=== PATIENT | female | born 1995 | race Caucasian/White ===

== ENCOUNTER 2021-08-18 04:48 | Emergency (ER) | payer OTHER, SELFPAY ==
--- NOTE | ~2021-08-18 | CT_ITS ---
EXAMINATION: CT soft tissue neck w con DATE: 08/18/2021 06:38 INDICATION: Mandibular swelling. Recent right maxillary tooth abscess. TECHNIQUE: Computed tomography (CT) of the neck was performed with 75 mL Omnipaque-350 intravenous co ntrast. Automated exposure control and iterative reconstruction technique were employed. The dose-janey gth product was 530.53 mGy-cm. COMPARISON: None FINDINGS: Multiple dental caries with periapical erosions including at the left maxillary canine, the right max illary lateral incisor and first premolar and at the left mandibular lateral incisor and right mandib ular canine. There are additional dental caries. No evident associated subperiosteal abscess. There i s an approximately 12 x 9 mm relatively lesion in the submandibular region with mild surrounding infl ammatory stranding. This lesion demonstrates greater than fluid attenuation but less than attenuation adjacent 8 mm lymph node potentially an abscess but more likely a suppurative submandibular lymph no de. There are numerous likely reactive lymph nodes along the bilateral jugular chains and posterior c ervical triangles, which remained <10 mm in maximal short axis diameter. The bilateral parotid and hernandez bmandibular glands are normal. Thyroid is normal. Cervical vasculature is unremarkable. Visualized po rtion of the brain is unremarkable. Bilateral orbits are normal. Mucous retention cyst in the right m axillary sinus. Mucosal thickening in the right sphenoid sinus. Mastoid air cells, middle ear cavitie s, visualized airway and apices of lungs are clear. Likely positional reversal of the normal cervical lordosis. Cervical spine is otherwise unremarkable. IMPRESSION: 1. Multiple dental caries, several with associated periapical erosions but no evident associated carlyn osteal abscess. 2. Likely reactive bilateral cervical lymphadenopathy with 12 x 9 mm lower attenuation left submandib ular lesion with surrounding inflammatory stranding and favor suppurative lymph node over abscess. Reviewed, dictated and finalized at location A. IMPRESSION: 1. Multiple dental caries, several with associated periapical erosions but no e vident associated periosteal abscess. 2. Likely reactive bilateral cervical lymphadenopathy with 12 x 9 mm lower atte nuation left submandibular lesion with surrounding inflammatory stranding and f avor suppurative lymph node over abscess.
[2021-08-18 04:52] VITALS: BP 113/67; PULSE 119; RESP 18; TEMP 36.8; O2SAT 100
[2021-08-18 05:31] VITALS: BP 103/77; PULSE 108; RESP 18; O2SAT 99
[2021-08-18 06:10] LABS: Basophils Percent Auto 0.3 % (0.2-1.2); Eosinophils Percent Auto 0.2 % (0-4.4); Hematocrit 34.5 % (37.0-47.0); Hemoglobin 11.3 g/dL (12.0-15.0); Immature Granulocyte Absolute 0.02 K/mm3 (0.00-0.031); Immature Granulocyte Percent A 0.3 % (0-0.5); Lymphocytes Absolute Auto 1.46 K/mm3 (0.9-3.2); Mean Corpuscular HGB Conc 32.8 g/dl (32-36); Mean Corpuscular Hemoglobin 29.4 pg (26-34); Mean Corpuscular Volume 89.8 fl (80-100); Mean Platelet Volume 8.6 fl (7.4-10.4); Monocytes Absolute Auto 0.2 K/mm3 (0.1-0.6); Monocytes Percent Auto 3.6 % (2.6-8.5); Neutrophils Absolute Auto 4.6 K/mm3 (1.3-6.7); Neutrophils Percent Auto 72.6 % (45.5-73.1); Platelet Count Result 296 k/mm3 (150-375); Red Blood Count 3.84 M/mm3 (4.2-5.4); Red Cell Distribution Width 12.6 % (11.5-14.5); White Blood Count 6.3 K/mm3 (4.5-10.0)
[2021-08-18 06:12] LABS: Alanine Aminotransferase 13 U/L (4-35); Albumin Level 3.5 g/dL (3.5-5.1); Alkaline Phosphatase 89 U/L (38-126); Anion Gap 4 mmol/L (8-16); Aspartate Amino Transferase 25 U/L (14-36); Bilirubin,Total 0.4 mg/dL (0.2-1.3); Blood Urea Nitrogen 7 mg/dL (7-17); Calcium 8.3 mg/dL (8.4-10.2); Carbon Dioxide 29 mmol/L (22-30); Chloride 102 mmol/L (98-107); Estimated Glomerular Filt Rate > 60; Glucose 141 mg/dL (65-110); Potassium 3.7 mmol/L (3.4-5.0); Sodium 135 mmol/L (137-145)
--- NOTE | 2021-08-18 06:20 | PC.NURSE ---
Pt to imaging at this time.
[2021-08-18 06:41] VITALS: BP 103/63; PULSE 102; RESP 14; O2SAT 99
[2021-08-18] MEDS: AMOXICILLIN/CLAVULANATE K 875-125 MG TAB 1 TABLET PO (07:14)
== END 2021-08-18 07:56 | disposition home or self-care (01) ==
DX: K02.9 Dental caries, unspecified (principal); R59.1 Generalized enlarged lymph nodes
CPT/HCPCS: 36415; 70491; 80053; 81025; 85025; 99284; A9270; Q9967